=== PATIENT | male | born 1930 | race Asian ===

== ENCOUNTER 2017-01-27 12:13 | Inpatient (IN) | payer OTHER ==
[~2017-01-27] VITALS: Ht 157.5 cm; Wt 61.7 kg
[~2017-01-27 12:13] MED LIST: AMLODIPINE BESYL5 M1 PO; ASPIR 8181 MG PO; BENICAR HCT1 TA1 PO; ETH400 PO; ISO300 PO; LEVOCETIRIZINE D5 M1 PO; LIPI10 PO; PYR500 PO; RIF300 PO; VITAMIN B-650 MG PO
[2017-01-27 13:10] LABS: BASOPHIL % 0.8 % (0-2); PLATELET COUNT 240 x10^3mcL (130-400)
[2017-01-27 13:23] LABS: RED CELL DISTRIBUTION WIDTH 17.1 % (11.5-14.5)
[2017-01-27 13:45] LABS: CALCIUM 8.8 mg/dL (8.5-10.1); CHLORIDE SERUM 105 mmol/L (98-107); CREATININE SERUM 2.1 mg/dL (0.7-1.3); GLUCOSE SERUM 126 mg/dL (74-106); POTASSIUM SERUM 4.2 mmol/L (3.5-5.1); SODIUM SERUM 141 mmol/L (136-145)
[2017-01-27 14:03] LABS: ALKALINE PHOSPHATASE 199 U/L (46-116); ALT/SGPT 31 U/L (16-63); AST/SGOT 56 U/L (15-37); BILIRUBIN TOTAL 1.1 mg/dL (0.20-1.00); TOTAL PROTEIN, SERUM 7.5 g/dL (6.4-8.2)
[2017-01-27 14:07] LABS: ALBUMIN 2.7 g/dL (3.4-5.0)
[2017-01-27 14:07] LABS: UA SPECIFIC GRAVITY 1.025 (1.005-1.035); microscopic required? YES; urine erythrocyte 2+ (NEGATIVE)
[2017-01-27] MEDS ORDERED: NOR5 PO (14:20)
[2017-01-27] MEDS ORDERED: PYR500 PO (14:20)
[2017-01-27] MEDS ORDERED: PHARMASSURE VI100 MG PO (14:21)
[2017-01-27] MEDS ORDERED: RIF300 PO (14:21)
[2017-01-27] MEDS ORDERED: ISONIAZID300 MG PO (14:22)
[2017-01-27] MEDS ORDERED: DIOVAN HCT PO (14:22)
[2017-01-27] MEDS ORDERED: METFORMIN HCL500 MG PO (14:22)
[2017-01-27] MEDS ORDERED: LIPI10 PO (14:28)
[2017-01-27] MEDS ORDERED: ASPIR 8181 MG PO (14:28)
[2017-01-27 16:15] VITALS: BP 128/55
[2017-01-27 17:09] VITALS: BP 119/71
[2017-01-27 17:38] LABS: FREE T4 1.3 ng/dL (0.76-1.46); FREE THYROXINE INDEX 2.3 ug/dL (1.4-4.5); T4(THYROXINE) 7.2 ug/dL (4.7-13.3)
[2017-01-27 17:51] LABS: T3 TOTAL 0.93 ng/mL
[2017-01-27 18:34] VITALS: BP 144/54
[2017-01-27 21:45] VITALS: BP 161/73
[2017-01-27 23:22] VITALS: BP 133/55
[2017-01-28 05:55] VITALS: BP 153/64
[2017-01-28 06:21] LABS: PLATELET COUNT 178 x10^3mcL (130-400)
[2017-01-28 06:31] LABS: CALCIUM 8.4 mg/dL (8.5-10.1); CARBON DIOXIDE 20.1 mmol/L (21-32); CHLORIDE SERUM 108 mmol/L (98-107); CREATININE SERUM 1.9 mg/dL (0.7-1.3); GLUCOSE SERUM 79 mg/dL (74-106); MAGNESIUM 2.6 mg/dL (1.8-2.4); POTASSIUM SERUM 4.2 mmol/L (3.5-5.1); SODIUM SERUM 143 mmol/L (136-145)
[2017-01-28 06:45] LABS: RED CELL DISTRIBUTION WIDTH 16.5 % (11.5-14.5)
[2017-01-28 08:48] LABS: BAND NEUTROPHIL 2 % (0-10); BASOPHIL 0 % (0-2); MONOCYTE 3 % (0-7); SEGMENTED NEUTROPHILS 62 % (37-75)
[2017-01-28 08:49] LABS: PLATELET MORPHOLOGY PLATELETS DECREASED; rbc morphology (normal/abnorm) ABNORMAL (NORMAL)
[2017-01-28 09:25] VITALS: BP 119/50
[2017-01-28 14:00] VITALS: BP 128/59
[2017-01-28 17:16] VITALS: BP 124/65
[2017-01-28 22:05] VITALS: BP 104/52
[2017-01-29 06:17] LABS: PLATELET COUNT 181 x10^3mcL (130-400)
[2017-01-29 06:26] VITALS: BP 101/47
[2017-01-29 06:47] LABS: CALCIUM 7.4 mg/dL (8.5-10.1); CARBON DIOXIDE 20.5 mmol/L (21-32); CHLORIDE SERUM 110 mmol/L (98-107); CREATININE SERUM 1.9 mg/dL (0.7-1.3); GLUCOSE SERUM 78 mg/dL (74-106); MAGNESIUM 1.7 mg/dL (1.8-2.4); PHOSPHOROUS 3.5 mg/dL (2.5-4.9); POTASSIUM SERUM 3.1 mmol/L (3.5-5.1); SODIUM SERUM 143 mmol/L (136-145)
[2017-01-29 10:29] VITALS: BP 125/57
[2017-01-29 11:56] LABS: SEGMENTED NEUTROPHILS 38 % (37-75)
[2017-01-29 11:57] LABS: BAND NEUTROPHIL 2 % (0-10); MONOCYTE 5 % (0-7); rbc morphology (normal/abnorm) ABNORMAL (NORMAL)
[2017-01-29 11:58] LABS: PLATELET MORPHOLOGY PLATELETS NORMAL
[2017-01-29 17:43] VITALS: BP 94/56
[2017-01-29 20:36] VITALS: BP 107/50
[2017-01-30 05:20] VITALS: BP 105/44
[2017-01-30 06:22] LABS: PLATELET COUNT 189 x10^3mcL (130-400)
[2017-01-30 06:25] LABS: CALCIUM 7.4 mg/dL (8.5-10.1); CHLORIDE SERUM 112 mmol/L (98-107); CREATININE SERUM 1.9 mg/dL (0.7-1.3); GLUCOSE SERUM 70 mg/dL (74-106); MAGNESIUM 1.9 mg/dL (1.8-2.4); PHOSPHOROUS 3.2 mg/dL (2.5-4.9); POTASSIUM SERUM 3.6 mmol/L (3.5-5.1); SODIUM SERUM 145 mmol/L (136-145)
[2017-01-30 06:35] LABS: RED CELL DISTRIBUTION WIDTH 17.6 % (11.5-14.5)
[2017-01-30 08:28] LABS: BAND NEUTROPHIL 0 % (0-10); BASOPHIL 0 % (0-2); MONOCYTE 4 % (0-7); SEGMENTED NEUTROPHILS 31 % (37-75)
[2017-01-30 08:30] LABS: burr cell (echinocyte) 1+; rbc morphology (normal/abnorm) ABNORMAL (NORMAL); schistocyte (helmet cell) 1+
[2017-01-30 08:31] LABS: acanthocyte (spur cell) 1+
[2017-01-30 09:26] VITALS: BP 117/49
[2017-01-30 16:56] VITALS: BP 134/60
[2017-01-30 21:00] VITALS: BP 127/49
[2017-01-31 05:59] VITALS: BP 136/62
[2017-01-31 06:07] LABS: PLATELET COUNT 181 x10^3mcL (130-400)
[2017-01-31 06:40] LABS: CALCIUM 7.4 mg/dL (8.5-10.1); CARBON DIOXIDE 19.2 mmol/L (21-32); CHLORIDE SERUM 114 mmol/L (98-107); CREATININE SERUM 1.9 mg/dL (0.7-1.3); GLUCOSE SERUM 77 mg/dL (74-106); MAGNESIUM 1.8 mg/dL (1.8-2.4); PHOSPHOROUS 2.7 mg/dL (2.5-4.9); POTASSIUM SERUM 3.5 mmol/L (3.5-5.1); SODIUM SERUM 145 mmol/L (136-145)
[2017-01-31 06:44] LABS: RED CELL DISTRIBUTION WIDTH 17.1 % (11.5-14.5)
[2017-01-31 09:36] VITALS: BP 130/57
[2017-01-31 10:32] LABS: MONOCYTE 6 % (0-7); SEGMENTED NEUTROPHILS 28 % (37-75)
[2017-01-31 10:38] LABS: PLATELET MORPHOLOGY PLATELETS NORMAL; acanthocyte (spur cell) 1+; burr cell (echinocyte) 1+; rbc morphology (normal/abnorm) ABNORMAL (NORMAL); schistocyte (helmet cell) 1+
[2017-01-31] MEDS ORDERED: CLEOCIN HCL300 MG PO (10:45)
[2017-01-31] MEDS ORDERED: LAC PO (10:45)
[2017-01-31] MEDS ORDERED: LEVAQUIN750 MG PO (10:45)
[2017-01-31 11:13] VITALS: BP 130/57
== END 2017-01-31 12:56 | disposition home or self-care (01) | DRG 871 ==
LOC: ED 12:13 → DU 13:55 → MU 01-29 10:49
PROVIDERS: Emergency Medicine; ADMIT Family Medicine
DX: A41.9 Sepsis, unspecified organism (principal); J69.0 Pneumonitis due to inhalation of food and vomit; E43 Unspecified severe protein-calorie malnutrition; N17.0 Acute kidney failure with tubular necrosis; A15.9 Respiratory tuberculosis unspecified; R65.20 Severe sepsis without septic shock; E11.9 Type 2 diabetes mellitus without complications; I10 Essential (primary) hypertension; E78.5 Hyperlipidemia, unspecified; Z68.24 Body mass index [BMI] 24.0-24.9, adult; Z79.84 Long term (current) use of oral hypoglycemic drugs; Z87.891 Personal history of nicotine dependence; Z79.4 Long term (current) use of insulin
CPT/HCPCS: 36600; 82962; 83880; 84439; G0480; J0456; J0696; J2543; J7030; J7040; J7050; Q0092

== ENCOUNTER 2017-04-12 14:48 | Inpatient (IN) | payer OTHER, MEDICAID ==
[~2017-04-12] VITALS: Ht 157.5 cm; Wt 83.5 kg
[~2017-04-12 14:48] MED LIST changes: +CLEOCIN HCL300 MG PO; +DIOVAN HCT PO; +ISONIAZID300 MG PO; +LAC PO; +LEVAQUIN750 MG PO; +METFORMIN HCL500 MG PO; +NOR5 PO; +PHARMASSURE VI100 MG PO
[2017-04-12 15:59] LABS: PLATELET COUNT 219 x10^3mcL (130-400)
[2017-04-12 16:01] LABS: RED CELL DISTRIBUTION WIDTH 18.6 % (11.5-14.5)
[2017-04-12 16:06] LABS: CALCIUM 8.1 mg/dL (8.5-10.1); CARBON DIOXIDE 22.2 mmol/L (21-32); CHLORIDE SERUM 109 mmol/L (98-107); CREATININE SERUM 1.7 mg/dL (0.7-1.3); GLUCOSE SERUM 99 mg/dL (74-106); POTASSIUM SERUM 5.3 mmol/L (3.5-5.1); SODIUM SERUM 138 mmol/L (136-145)
[2017-04-12 16:23] LABS: BAND NEUTROPHIL 1 % (0-10); BASOPHIL 0 % (0-2); SEGMENTED NEUTROPHILS 39 % (37-75)
[2017-04-12 16:27] LABS: ALBUMIN 2.2 g/dL (3.4-5.0); ALKALINE PHOSPHATASE 257 U/L (46-116); ALT/SGPT 27 U/L (16-63); AST/SGOT 47 U/L (15-37); BILIRUBIN TOTAL 0.55 mg/dL (0.20-1.00); LIPASE 276 IU/L (73-393); TOTAL PROTEIN, SERUM 6.4 g/dL (6.4-8.2)
[2017-04-12 16:29] LABS: MONOCYTE 13 % (0-7)
[2017-04-12 16:30] LABS: PLATELET MORPHOLOGY PLATELETS NORMAL; ovalocyte/elliptocyte 1+; rbc morphology (normal/abnorm) ABNORMAL (NORMAL)
[2017-04-12] MEDS ORDERED: XYZAL5 M1 PO (16:48)
[2017-04-12] MEDS ORDERED: PROAIR HFA8.5 GM IH (16:49)
[2017-04-12] MEDS ORDERED: MONTELUKAST SOD10 M1 PO (16:50)
[2017-04-12 19:33] LABS: CHOLESTEROL/HDL RATIO 2.1; MAGNESIUM 1.6 mg/dL (1.8-2.4); PHOSPHOROUS 3.9 mg/dL (2.5-4.9)
[2017-04-12 19:38] LABS: T3 TOTAL 0.97 ng/mL
[2017-04-12 19:39] LABS: FREE T4 1.25 ng/dL (0.76-1.46); FREE THYROXINE INDEX 2.7 ug/dL (1.4-4.5); T4(THYROXINE) 8.3 ug/dL (4.7-13.3)
[2017-04-12 19:52] VITALS: BP 144/60
[2017-04-12 22:10] VITALS: BP 143/59
[2017-04-12 23:42] LABS: microscopic required? YES; urine erythrocyte 2+ (NEGATIVE)
[2017-04-12 23:53] LABS: AMPHETAMINE QUAL UR NONE DETECTED (NEG <=1000)
[2017-04-13 03:58] LABS: RED BLOOD CELLS 3.69 M/mm3 (4.52-5.90)
[2017-04-13 04:04] LABS: TOTAL IRON BINDING CAPACITY 260 ug/dL (250-450)
[2017-04-13 04:05] LABS: IRON 33 ug/dL (65-170)
[2017-04-13 06:00] LABS: PLATELET COUNT 188 x10^3mcL (130-400)
[2017-04-13 06:22] LABS: CALCIUM 8.4 mg/dL (8.5-10.1); CARBON DIOXIDE 26.7 mmol/L (21-32); CHLORIDE SERUM 107 mmol/L (98-107); CREATININE SERUM 1.8 mg/dL (0.7-1.3); GLUCOSE SERUM 107 mg/dL (74-106); MAGNESIUM 1.6 mg/dL (1.8-2.4); SODIUM SERUM 140 mmol/L (136-145)
[2017-04-13 06:24] VITALS: BP 154/59
[2017-04-13 06:47] LABS: RED CELL DISTRIBUTION WIDTH 18.1 % (11.5-14.5)
[2017-04-13 07:03] LABS: POTASSIUM SERUM 5.6 mmol/L (3.5-5.1)
[2017-04-13 08:50] VITALS: BP 120/53
[2017-04-13 11:15] LABS: BAND NEUTROPHIL 2 % (0-10); BASOPHIL 0 % (0-2); MONOCYTE 6 % (0-7); SEGMENTED NEUTROPHILS 43 % (37-75)
[2017-04-13 11:17] LABS: PLATELET MORPHOLOGY PLATELETS NORMAL; ovalocyte/elliptocyte 1+; rbc morphology (normal/abnorm) ABNORMAL (NORMAL)
[2017-04-13 11:18] LABS: schistocyte (helmet cell) 1+
[2017-04-13 12:54] VITALS: BP 123/60
[2017-04-13 15:37] LABS: SOURCE FLUID PARACENTESIS
[2017-04-13 15:38] LABS: APPEARANCE FLUID CLEAR; COLOR FLUID YELLOW; RBC FLUID 210 /cumm; WBC FLUID 5.56 /cumm
[2017-04-13 17:50] VITALS: BP 134/46
[2017-04-13 21:05] VITALS: BP 133/58
[2017-04-14 04:46] VITALS: BP 129/47
[2017-04-14 06:41] LABS: CALCIUM 8.4 mg/dL (8.5-10.1); CARBON DIOXIDE 27.3 mmol/L (21-32); CHLORIDE SERUM 107 mmol/L (98-107); CREATININE SERUM 1.7 mg/dL (0.7-1.3); GLUCOSE SERUM 72 mg/dL (74-106); MAGNESIUM 1.5 mg/dL (1.8-2.4); PHOSPHOROUS 4.5 mg/dL (2.5-4.9); POTASSIUM SERUM 4.5 mmol/L (3.5-5.1); SODIUM SERUM 141 mmol/L (136-145)
[2017-04-14 08:47] VITALS: Ht 157.5 cm; Wt 83.5 kg
[2017-04-14 09:56] VITALS: BP 124/45
[2017-04-14 10:36] LABS: PLATELET COUNT 168 x10^3mcL (130-400)
[2017-04-14 10:48] LABS: RED CELL DISTRIBUTION WIDTH 17.7 % (11.5-14.5)
[2017-04-14 11:48] LABS: ATYPICAL LYMPH 1 %; BAND NEUTROPHIL 1 % (0-10); BASOPHIL 0 % (0-2); MONOCYTE 3 % (0-7); SEGMENTED NEUTROPHILS 73 % (37-75)
[2017-04-14 11:49] LABS: PLATELET MORPHOLOGY PLATELETS NORMAL; rbc morphology (normal/abnorm) ABNORMAL (NORMAL)
[2017-04-14 14:00] VITALS: BP 112/53
[2017-04-14 18:42] VITALS: BP 138/55
[2017-04-14 21:43] VITALS: BP 144/60
[2017-04-15 06:02] VITALS: BP 135/63
[2017-04-15 06:27] LABS: CALCIUM 8.2 mg/dL (8.5-10.1); CARBON DIOXIDE 25.4 mmol/L (21-32); CHLORIDE SERUM 107 mmol/L (98-107); CREATININE SERUM 1.7 mg/dL (0.7-1.3); GLUCOSE SERUM 72 mg/dL (74-106); MAGNESIUM 1.7 mg/dL (1.8-2.4); POTASSIUM SERUM 4.3 mmol/L (3.5-5.1); SODIUM SERUM 141 mmol/L (136-145)
[2017-04-15 08:43] LABS: BASOPHIL % 0.6 % (0-2); PLATELET COUNT 155 x10^3mcL (130-400)
[2017-04-15 08:50] LABS: RED CELL DISTRIBUTION WIDTH 17.4 % (11.5-14.5)
[2017-04-15] MEDS ORDERED: LASIX20 MG PO (09:31)
[2017-04-15] MEDS ORDERED: SPIRONOLACTONE50 MG PO (09:31)
[2017-04-15 09:55] VITALS: BP 120/62
[2017-04-15 11:56] VITALS: BP 120/62
== END 2017-04-15 14:06 | disposition home or self-care (01) | DRG 432 ==
LOC: ED 14:48 → DU 18:31 → MU 04-15 08:37
PROVIDERS: Emergency Medicine; Family Medicine; ADMIT Family Medicine
PROC: 0W9G3ZZ Drainage of Peritoneal Cavity, Percutaneous Approach (ICD-10-PCS; principal; 2017-04-13)
DX: K74.69 Other cirrhosis of liver (principal); E43 Unspecified severe protein-calorie malnutrition; N17.0 Acute kidney failure with tubular necrosis; R18.8 Other ascites; A15.9 Respiratory tuberculosis unspecified; N13.8 Other obstructive and reflux uropathy; K76.6 Portal hypertension; E11.9 Type 2 diabetes mellitus without complications; E11.51 Type 2 diabetes mellitus with diabetic peripheral angiopathy without gangrene; D50.9 Iron deficiency anemia, unspecified; E83.42 Hypomagnesemia; E87.5 Hyperkalemia; Z79.82 Long term (current) use of aspirin; Z79.4 Long term (current) use of insulin; E66.9 Obesity, unspecified; Z68.33 Body mass index [BMI] 33.0-33.9, adult; F17.210 Nicotine dependence, cigarettes, uncomplicated
CPT/HCPCS: 82962; 83880; 84439; 87116; 87206; 88344; 94150; J1940; J2060; J2405; J3475; J7030; J7620; Q0092

== ENCOUNTER 2017-06-28 22:22 | Inpatient (IN) | payer OTHER, MEDICAID ==
[~2017-06-28] VITALS: Ht 162.6 cm; Wt 90.0 kg
[~2017-06-28 22:22] MED LIST changes: +LASIX20 MG PO; +MONTELUKAST SOD10 M1 PO; +PROAIR HFA8.5 GM IH; +SPIRONOLACTONE50 MG PO; +XYZAL5 M1 PO
[2017-06-28 23:57] LABS: ALKALINE PHOSPHATASE 230 U/L (46-116); ALT/SGPT 24 U/L (16-63); AST/SGOT 47 U/L (15-37); CALCIUM 8.2 mg/dL (8.5-10.1); CHLORIDE SERUM 116 mmol/L (98-107); CREATININE SERUM 2.4 mg/dL (0.7-1.3); GLUCOSE SERUM 75 mg/dL (74-106); SODIUM SERUM 144 mmol/L (136-145)
[2017-06-28 23:58] LABS: BASOPHIL % 0.3 % (0-2); PLATELET COUNT 131 x10^3mcL (130-400)
[2017-06-28 23:59] LABS: RED CELL DISTRIBUTION WIDTH 22.7 % (11.5-14.5)
[2017-06-29] VITALS (17 sets, daily range): BP systolic 94–154; BP diastolic 37–116
[2017-06-29] LABS: ALBUMIN 2.1 g/dL (3.4-5.0); POTASSIUM SERUM 6.2 mmol/L (3.5-5.1); TOTAL PROTEIN, SERUM 5.9 g/dL (6.4-8.2)
[2017-06-29] MEDS ORDERED: GLUCOPHAGE XR500 MG PO (01:18)
[2017-06-29 02:01] LABS: PHOSPHOROUS 5.5 mg/dL (2.5-4.9)
[2017-06-29 02:07] LABS: CHOLESTEROL/HDL RATIO 2.1
[2017-06-29 02:32] LABS: FREE T4 1.15 ng/dL (0.76-1.46); FREE THYROXINE INDEX 2.6 ug/dL (1.4-4.5)
[2017-06-29 02:38] LABS: T3 TOTAL 1.07 ng/mL
[2017-06-29 04:36] LABS: UA SPECIFIC GRAVITY 1.015 (1.005-1.035); microscopic required? YES; urine erythrocyte TRACE (NEGATIVE)
[2017-06-29 09:19] LABS: BASOPHIL % 0.2 % (0-2); PLATELET COUNT 136 x10^3mcL (130-400)
[2017-06-29 09:31] LABS: RED CELL DISTRIBUTION WIDTH 23.1 % (11.5-14.5)
[2017-06-29 09:46] LABS: CALCIUM 8.6 mg/dL (8.5-10.1); CARBON DIOXIDE 20.3 mmol/L (21-32); CHLORIDE SERUM 115 mmol/L (98-107); CREATININE SERUM 2.5 mg/dL (0.7-1.3); GLUCOSE SERUM 122 mg/dL (74-106); SODIUM SERUM 146 mmol/L (136-145)
[2017-06-29 09:47] LABS: POTASSIUM SERUM 5.7 mmol/L (3.5-5.1)
[2017-06-29 09:56] LABS: rbc morphology (normal/abnorm) ABNORMAL (NORMAL); target cell (codocyte) 1+
[2017-06-30] VITALS (17 sets, daily range): BP systolic 83–107; BP diastolic 33–42
[2017-06-30 05:05] LABS: BASOPHIL % 0.1 % (0-2)
[2017-06-30 05:06] LABS: PLATELET COUNT 128 x10^3mcL (130-400); RED CELL DISTRIBUTION WIDTH 22.4 % (11.5-14.5)
[2017-06-30 05:09] LABS: CALCIUM 8.4 mg/dL (8.5-10.1); CARBON DIOXIDE 19.5 mmol/L (21-32); CHLORIDE SERUM 116 mmol/L (98-107); CREATININE SERUM 2.8 mg/dL (0.7-1.3); GLUCOSE SERUM 89 mg/dL (74-106); MAGNESIUM 1.9 mg/dL (1.8-2.4); PHOSPHOROUS 6.8 mg/dL (2.5-4.9); SODIUM SERUM 148 mmol/L (136-145)
[2017-06-30 05:11] LABS: POTASSIUM SERUM 5.9 mmol/L (3.5-5.1)
[2017-06-30 20:34] LABS: CALCIUM 7.7 mg/dL (8.5-10.1); CARBON DIOXIDE 17.8 mmol/L (21-32); CHLORIDE SERUM 114 mmol/L (98-107); CREATININE SERUM 3.4 mg/dL (0.7-1.3); GLUCOSE SERUM 63 mg/dL (74-106); SODIUM SERUM 148 mmol/L (136-145)
[2017-06-30 20:48] LABS: POTASSIUM SERUM 6.5 mmol/L (3.5-5.1)
[2017-06-30 22:39] LABS: APPEARANCE FLUID HAZY; COLOR FLUID PALE YELLOW; SOURCE FLUID PARACENTESIS
[2017-06-30 22:41] LABS: LYMPHOCYTE FLUID 95 %; MONOCYTE FLUID 5 %; RBC FLUID 200 /cumm; WBC FLUID 27 /cumm
[2017-07-01] VITALS (19 sets, daily range): BP systolic 78–96; BP diastolic 30–39; Ht 162.6 cm; Wt 90.0 kg
[2017-07-01 05:22] LABS: CALCIUM 7.8 mg/dL (8.5-10.1); CARBON DIOXIDE 20.9 mmol/L (21-32); CHLORIDE SERUM 115 mmol/L (98-107); CREATININE SERUM 3.7 mg/dL (0.7-1.3); GLUCOSE SERUM 85 mg/dL (74-106); PHOSPHOROUS 7.9 mg/dL (2.5-4.9); SODIUM SERUM 148 mmol/L (136-145)
[2017-07-01 05:23] LABS: POTASSIUM SERUM 6.3 mmol/L (3.5-5.1)
[2017-07-01 05:48] LABS: BASOPHIL % 0.4 % (0-2)
[2017-07-01 05:53] LABS: PLATELET COUNT 92 x10^3mcL (130-400); RED CELL DISTRIBUTION WIDTH 22.3 % (11.5-14.5)
[2017-07-01 12:10] LABS: CALCIUM 7.9 mg/dL (8.5-10.1); CARBON DIOXIDE 16.6 mmol/L (21-32); CHLORIDE SERUM 116 mmol/L (98-107); GLUCOSE SERUM 75 mg/dL (74-106); POTASSIUM SERUM 6.4 mmol/L (3.5-5.1); SODIUM SERUM 146 mmol/L (136-145)
[2017-07-02] VITALS (19 sets, daily range): BP systolic 70–88; BP diastolic 27–39
[2017-07-02 04:56] LABS: CALCIUM 8.2 mg/dL (8.5-10.1); CARBON DIOXIDE 17.5 mmol/L (21-32); CHLORIDE SERUM 116 mmol/L (98-107); GLUCOSE SERUM 69 mg/dL (74-106); PHOSPHOROUS 8.7 mg/dL (2.5-4.9); SODIUM SERUM 146 mmol/L (136-145)
[2017-07-02 05:07] LABS: BASOPHIL % 0.1 % (0-2)
[2017-07-02 05:08] LABS: CREATININE SERUM 4.4 mg/dL (0.7-1.3); POTASSIUM SERUM 6.1 mmol/L (3.5-5.1)
[2017-07-02 05:09] LABS: PLATELET COUNT 80 x10^3mcL (130-400); RED CELL DISTRIBUTION WIDTH 23.5 % (11.5-14.5)
[2017-07-03] VITALS (15 sets, daily range): BP systolic 76–94; BP diastolic 31–40
[2017-07-04] VITALS (8 sets, daily range): BP systolic 81–93; BP diastolic 33–38
== END 2017-07-04 22:50 | disposition expired | DRG 207 ==
LOC: ED 22:22 → DU 06-29 00:23 → ED 06-29 00:23 → IC 06-29 00:23
PROVIDERS: Emergency Medicine; Family Medicine; ADMIT Family Medicine
PROC: 5A1955Z Respiratory Ventilation, Greater than 96 Consecutive Hours (ICD-10-PCS; principal; 2017-06-29)
PROC: 0BH17EZ Insertion of Endotracheal Airway into Trachea, Via Natural or Artificial Opening (ICD-10-PCS; 2017-06-29)
PROC: 05HM33Z Insertion of Infusion Device into Right Internal Jugular Vein, Percutaneous Approach (ICD-10-PCS; 2017-06-29)
PROC: B543ZZA Ultrasonography of Right Jugular Veins, Guidance (ICD-10-PCS; 2017-06-29)
PROC: 0W9G3ZZ Drainage of Peritoneal Cavity, Percutaneous Approach (ICD-10-PCS; 2017-06-30)
DX: J96.01 Acute respiratory failure with hypoxia (principal); E43 Unspecified severe protein-calorie malnutrition; N17.0 Acute kidney failure with tubular necrosis; K76.7 Hepatorenal syndrome; I50.43 Acute on chronic combined systolic (congestive) and diastolic (congestive) heart failure; A15.0 Tuberculosis of lung; R18.8 Other ascites; N39.0 Urinary tract infection, site not specified; I11.0 Hypertensive heart disease with heart failure; K74.60 Unspecified cirrhosis of liver; E87.5 Hyperkalemia; E83.39 Other disorders of phosphorus metabolism; E11.51 Type 2 diabetes mellitus with diabetic peripheral angiopathy without gangrene; D63.8 Anemia in other chronic diseases classified elsewhere; Z68.28 Body mass index [BMI] 28.0-28.9, adult; Z87.891 Personal history of nicotine dependence; Z79.84 Long term (current) use of oral hypoglycemic drugs; Z66 Do not resuscitate; Z51.5 Encounter for palliative care
CPT/HCPCS: 36556; 36600; 82962; 83880; 84439; A4628; C9113; J0330; J1265; J1642; J1644; J1815; J2250; J2270; J2543; J2704; J2765; J3010; J3490; J7030; J7040; J7042; J7050; J7613; J7620; J7644; P9047; Q0092